=== PATIENT | female | born 1970 | race Caucasian/White ===

== ENCOUNTER → 2021-02-05 | Outpatient (CLI) | payer BC | LOC: MRI 12:35 | DX: M85.80 Other specified disorders of bone density and structure, unspecified site (principal); M54.5 Low back pain; M51.36 Other intervertebral disc degeneration, lumbar region; Z85.3 Personal history of malignant neoplasm of breast | CPT/HCPCS: 72158; A9577 ==

== ENCOUNTER → 2021-02-20 | Outpatient (CLI) | payer BC | LOC: NM 07:50 | DX: M85.80 Other specified disorders of bone density and structure, unspecified site (principal); M54.5 Low back pain; Z85.3 Personal history of malignant neoplasm of breast | CPT/HCPCS: 78306; A9503 ==

== ENCOUNTER → 2021-12-19 | Outpatient (CLI) | payer BC ==
[2021-12-20 09:16] LABS: HBSAG SCREEN Negative (Negative); HCV AB 0.1 (0.0-0.9); HEP A AB, IGM Negative (Negative); HEP B CORE AB, IGM Negative (Negative)
[2021-12-22 08:13] LABS: QUANTIFERON MITOGEN VALUE >10.00 IU/mL (.); QUANTIFERON NIL VALUE 0.01 IU/mL (.); QUANTIFERON TB1 AG VALUE 0.01 IU/mL (.); QUANTIFERON TB2 AG VALUE 0.01 IU/mL (.); QUANTIFERON-TB GOLD PLUS Negative (Negative)
== END ==
LOC: LAB 13:55
PROVIDERS: Internal Medicine Gastroenterology
DX: K51.90 Ulcerative colitis, unspecified, without complications (principal)
CPT/HCPCS: 36415; 80074; 81479; 83520; 86140; 88346